=== PATIENT | female | born 1990 | race Caucasian/White ===

== ENCOUNTER → 2018-11-01 14:07 | Outpatient (CLI) | payer BC, OTHER, SELFPAY ==
--- NOTE | 2018-11-01 14:17 | US_ITS ---
US breast RT complete US breast LT complete, Ordering Physician: Ann Perales APRN Patient Age: 28 years: Female HISTORY: ITS.REASON: BILAT BREAST MASS Technologist MW states the patient has scattered palpable areas of density bilaterally. No single dominant palpable area clinically TECHNIQUE: COMPARISON :No prior studies PROCEDURE/ ultrasound survey of the entire right and left breast performed; axillary survey included: ULTRASOUND LEFT BREAST Including Axillary Survey: Dense fibrous background initial patient with and fibrocystic pattern overall bilaterally.. 10:00: At more central portion breast posterior to the nipple is a 6.7 mm debris-filled cyst benign appearance. Thin wall. 11:00.: .-At central breast posterior to the nipple there is a 12 mm length x 6 mm AP benign appearing cyst withmoderate wall thickness. In this may benefit from 6 month follow up given the moderate wall thickness;. But appears to be a benign cyst There is a smaller cyst or septated portion of this cyst seen anteriorly at the second cystic area measuring 5 mm maximally Axillary survey images 2 benign-appearing axillary lymph nodes the largest 1.9 cm in length. The these are not of concern ULTRASOUND RIGHT BREAST Including Axillary Survey: 1:00 central breast posterior the nipple is a benign appearing cyst measuring up to 9.8 mm length x 4.5 mm AP. 2:00: Bilobed benign-appearing cyst measuring just over 1 cm length x 6 mm.. 10:00: there is a 8.6 mm x 5.3 mm benign-appearing cyst central breast 11:00: debris-filled cyst measuring 6.4 mm central breast deep to the nipple region. Again otherwise note a background of moderately dense fibrous breast reflecting the underlying fibrocystic breast appearance overall bilaterally. Axilla survey demonstrates 3 Benign axillary lymph nodes. Not of concern. Largest 1.7 cm length with thinned cortex. ...... IMPRESSION: .... 1. Dense Fibrocystic breast bilaterally. No suspicious solid nodules or areas with ultrasound . Scattered cysts throughout both breasts, slightly more numerous at right breast; with background of dense fibrous appearing tissue. (Because dense ultrasound pattern & numerous cysts we did not pursue mammography 28-year-old patient.. It was felt that ultrasound would suffice at this initial visit particularly since no unique discrete single palpable dominant mass encountered clinically) RIGHT BREAST.: Several small cyst & debris-filled cysts at the right breast. None of significant concern. Largest measuring nearly 1 cm size at 1:00. These benign-appearing cysts can be followed LEFT BREAST:.two benign-appearing cyst. The largest measuring up to 1.2 cm at 11 o'clock position, with moderate wall thickness which could reflect some minor inflammation if tender here.. Suggest a follow-up Bilateral Breast Ultrasound in 6-9 months to confirm stable baseline character. (. If a persistent a dominant or persistent palpable area of encounter or persistent mammography could be included at that visit) BI-RADS Category: 3 Probably Benign Finding Short Term Follow-up to confirm stability RECOMMENDED FOLLOW-UP: 6M - -9 MONTH FOLLOW-UP (A letter has been sent to the patient regarding results of the study.)
== END ==
PROVIDERS: PCP Nurse Practitioner Family; Visit Provider Nurse Practitioner Family
DX: Q83.9 Congenital malformation of breast, unspecified (principal)
CPT/HCPCS: 76641

== ENCOUNTER → 2020-02-02 16:20 | Outpatient (CLI) | payer BC, SELFPAY | PROVIDERS: PCP Family Medicine; Visit Provider Nurse Practitioner Family | DX: Z02.1 Encounter for pre-employment examination (principal); Z11.1 Encounter for screening for respiratory tuberculosis ==

== ENCOUNTER 2020-03-29 13:36 | Emergency (ER) | payer BC, SELFPAY ==
[2020-03-29 13:44] VITALS: BP 124/76; PULSE 100; RESP 18; TEMP 36.7; O2SAT 99; BMI 30.2
--- NOTE | 2020-03-29 14:00 | HMH.EDUTC ---
[facility] [place] Disposition Clinical Impression: Sinusitis Qualifiers: Sinusitis location: unspecified location Chronicity: acute Recurrence: non-recurrent Qualified Code(s): J01.90 - Acute sinusitis, unspecified Disposition: Home, Self-Care Condition on Discharge: Good Instructions: Sinusitis, DI for Sinusitis Additional Instructions: Drink plenty of fluids. Take tylenol or ibuprofen for pain or fever. Take the medications as directed. Follow up with your regular doctor. GO TO THE ER FOR ANY WORSENING SYMPTOMS FOLLOW THE DIRECTIONS ON THE COVID-19 HAND OUT THAT WE GAVE YOU REGARDING SELF-ISOLATION UNTIL YOU KNOW YOUR COVID-19 RESULTS Prescriptions: Brompheniramine/Pseudoephed/Dm [Bromfed Dm Cough Syrup] 5 ml PO Q6HP PRN #240 syrup PRN Reason: Cough [facility] Status[id number] Azithromycin [Z-Mohan 250mg Tab*] 250 mg PO UD DOSE PK #6 tab Transmission Status: Received by [facility] Referrals: Ian Linder MD [Primary Care Provider] - Forms: Work/School Release Time of Disposition: 14:06 Medical Decision Making - Medical Records Medical records reviewed: No: I reviewed the patient's medical records. - Nathan Inquiry Pt receiving controlled substance: No Vital Signs: 03/29/20 13:44 03/29/20 14:15 Temperature 98.1 F 98.1 F Temperature Source Oral Oral Pulse Rate 100 H Pulse Rate [Radial] 100 H Respiratory Rate 18 18 Blood Pressure 124/76 Blood Pressure [Right Arm] 124/76 Blood Pressure Mean [Right Arm] 92 Blood Pressure Source Automatic Cuff Blood Pressure Source [Right Arm] Automatic Cuff Blood Pressure Position Sitting Blood Pressure Position [Right Arm] Sitting 02 Sat by Pulse Oximetry 99 Oxygen Delivery Method Room Air Room Air Orders (Tests/Meds): ORDERS Category Date Time Status Covid-19 Nasal PCR Sendout [place] Routine Lab 03/29/20 13:43 Received [facility] [place] HPI - General Stated complaint: drainage, upset stomach Time Seen by Provider: 03/29/20 14:00 Mode of Arrival: Ambulatory Source of Information: Patient Limitations: No Limitations Description of Symptoms (Recalled from Triage Doc. by RN): feeling bad for about weeks, sneezing, drainage and no taste HEENT Symptoms (Recalled from RN notes): Yes Resp Symptoms (Recalled from RN notes): No Skin Symptoms (Recalled from RN notes): No MS Symptoms (Recalled from RN notes): No Functional Status (Recalled from RN notes): wnl - History of Present Illness Provider Complaint: She states that she has been feeling bad and feeling run down for around 2 weeks, but today she has started feeling much worse. She denies any known exposure to covid. She works at a [employer] class at [employer]. - Related Data Previous Rx's Medication Instructions Recorded Azithromycin [Z-Mohan 250mg Tab*] 250 mg PO UD DOSE PK #6 tab 05/19/19 Benzonatate [Tessalon Perle 100mg 100 mg PO TIDP PRN #30 cap 05/19/19 Cap] Brompheniramine/Pseudoephed/Dm 5 ml PO Q6HP PRN #240 syrup 05/19/19 [Bromfed Dm Cough Syrup] predniSONE [Deltasone 10mg tablet] 10 mg PO BID 3 Days #6 tab 05/19/19 Azithromycin [Z-Mohan 250mg Tab*] 250 mg PO UD DOSE PK #6 tab 03/29/20 Brompheniramine/Pseudoephed/Dm 5 ml PO Q6HP PRN #240 syrup 03/29/20 [Bromfed Dm Cough Syrup] Allergies Allergy/AdvReac Type Severity Reaction Status Date / Time No Known Allergies Allergy Verified 05/19/18 14:04 - Worker's Comp Is this a Worker's Comp case?: No [facility] History - Hepatitis A Screen Drug use history?: No High risk sexual behaviors?: No History of sexually transmitted infection?: No Currently employed?: No Childcare worker?: No Do you have indoor plumbing?: Yes Do you have electricity?: Yes Attestation statement:: This patient has been screened for Hepatitis A risk factors. I have reviewed the patient's past medical history: Yes Medical History: Denies:: Diabetes Mellitus Type 1, Diabetes Mellitus Type 2, Hypertension Other Surg
[2020-03-29 14:15] VITALS: BP 124/76; PULSE 100; RESP 18; TEMP 36.7; O2SAT 99
[2020-03-30 13:57] LABS: Covid-19 Nasal PCR Sendout Lex Not Detected
== END 2020-03-29 14:16 | disposition home or self-care (01) ==
PROVIDERS: Emergency Provider Nurse Practitioner Family; PCP Family Medicine
DX: Z20.828 Contact with and (suspected) exposure to other viral communicable diseases (principal); J01.90 Acute sinusitis, unspecified
CPT/HCPCS: 99201; U0004

== ENCOUNTER 2020-07-13 15:00 | Emergency (ER) | payer BC, SELFPAY ==
[2020-07-13 15:00] VITALS: BP 118/71; PULSE 74; RESP 20; TEMP 36.5; O2SAT 98; BMI 30.2
--- NOTE | 2020-07-13 15:19 | HMH.EDUTC ---
[facility] [place] Clinical Impression: Sinusitis Qualifiers: Sinusitis location: unspecified location Chronicity: unspecified Qualified Code(s): J32.9 - Chronic sinusitis, unspecified Disposition: Home, Self-Care Condition on Discharge: Good Instructions: Sinusitis, Sinus Headache, DI for Sinusitis, DI for COVID-19 (Suspected or Confirmed ), Coronavirus Disease 2019, Sore Throat Additional Instructions: *Monitor Temp, Over the counter Motrin or Tylenol as directed/as needed Tylenol every 4 hours and Motrin every 6 hours (as long as your family doctor has told you that you can take it) for fever or pain. and straight to ER if unable to lower temp less than 101.0 after medication given *Warm salt water gargles may help to soothe the throat *Throat Lozenges *Warm fluids like tea with honey may help to soothe the throat *Sleep elevated *Humidifier/Vaporizer Your throat swab was sent for culture. Those results are typically sent to your primary care. Be sure to follow up in 2-3 days with your family doctor/primary care physician if no improvement so they can review those result and treat if necessary. If you don?t have a primary care doctor, I recommend you get one but in the mean time, you will have to return to a walk in clinic Follow up IMMEDIATELY for new or worsening symptoms or no Noticeable improvement over the next 48-72 hours. 911 for difficulty breathing or swallowing You were tested for today for COVID19 your test result should be back in the next 24-48 hours, you may call to the [facility] to see if your test results are back in the next 48 hours [phone] [facility] hours are 9am-9pm You was given a handout with instructions for Self Quarantine and Self isolation for while you wait on test results and what to do if they are positive If you are positive the Health Dept will be contacting you also Prescriptions: methylPREDNISolone [Medrol 4mg tab] 4 mg PO DIRECTED #21 tab Transmission Status: Pending to [facility] Azithromycin [Z-Mohan 250mg Tab] 250 mg PO DIRECTED #6 tab Transmission Status: Pending to [facility] Referrals: Ian Linder MD [Primary Care Provider] - As needed Forms: Work/School Release Time of Disposition: 15:23 Medical Decision Making - Nathan Inquiry Pt receiving controlled substance: No Nathan was queried for this patient: No Vital Signs: 07/13/20 15:00 Temperature 97.7 F Temperature Source Oral Pulse Rate [Right Brachial] 74 Respiratory Rate 20 Blood Pressure [Right Arm] 118/71 Blood Pressure Mean [Right Arm] 86 Blood Pressure Source [Right Arm] Automatic Cuff Blood Pressure Position [Right Arm] Sitting 02 Sat by Pulse Oximetry 98 Oxygen Delivery Method Room Air - Lab Data Lab results reviewed: Yes: I reviewed the patient's lab results. Orders (Tests/Meds): ORDERS Category Date Time Status Covid-19 Nasal PCR ([facility]) Routine Lab 07/13/20 15:03 Ordered [facility] [place]PI - General Stated complaint: covid test Time Seen by Provider: 07/13/20 15:19 Mode of Arrival: Ambulatory Source of Information: Patient Limitations: No Limitations Description of Symptoms (Recalled from Triage Doc. by RN): COVID TEST D/T EXPOSURE. PATIENT C/O LOSS OF TASTE, SINUS PRESSURE, SORE THROAT, AND RASH TO ARM HEENT Symptoms (Recalled from RN notes): Yes Resp Symptoms (Recalled from RN notes): No Skin Symptoms (Recalled from RN notes): Yes MS Symptoms (Recalled from RN notes): No Functional Status (Recalled from RN notes): WNL - History of Present Illness Provider Complaint: Patient states that she was around her sister in law last week and she tested positive for COVID yesterday States that she has been having sinus pain and pressure along with sore throat and yesterday had a rash on her arm that has since went away States that today she noticed she was unable to taste anything so she came in wanting to get tested - Related Data Previous Rx's Medication Instructions
[2020-07-13 15:20] LABS: UTC Strep Screen (Rapid) Negative (Negative)
[2020-07-13 15:25] VITALS: BP 118/71; PULSE 74; RESP 20; TEMP 36.5; O2SAT 98
--- NOTE | 2020-07-14 10:46 | PC.NURSE ---
spoke with patient to rely positive covid results.
== END 2020-07-13 15:30 | disposition home or self-care (01) ==
PROVIDERS: Emergency Provider Nurse Practitioner; PCP Family Medicine
DX: U07.1 COVID-19 (principal); J32.9 Chronic sinusitis, unspecified; R43.9 Unspecified disturbances of smell and taste; J02.9 Acute pharyngitis, unspecified; R21 Rash and other nonspecific skin eruption; Z20.822 Contact with and (suspected) exposure to COVID-19; Z82.3 Family history of stroke; Z80.9 Family history of malignant neoplasm, unspecified
CPT/HCPCS: 87880; 99202; G0463; U0003

== ENCOUNTER → 2020-08-31 14:48 | Outpatient (POV) | payer BC, SELFPAY | PROVIDERS: Visit Provider Dermatology | DX: Z00.00 Encounter for general adult medical examination without abnormal findings (principal) ==

== ENCOUNTER 2020-10-14 16:26 | Emergency (ER) | payer BC, SELFPAY ==
[2020-10-14 16:36] VITALS: BP 136/75; PULSE 65; RESP 16; TEMP 36.9; O2SAT 99; BMI 29.2
--- NOTE | 2020-10-14 16:52 | HMH.EDUTC ---
[facility] [place] Disposition Clinical Impression: Vomiting and diarrhea Disposition: Home, Self-Care Condition on Discharge: Good Instructions: Diarrhea, Nausea and Vomiting-Adult, Ondansetron, Dicyclomine Additional Instructions: Drink extra fluids with and between meals. If you have difficulty drinking, try very small amounts of water or suck on ice chips. ? Avoid fruit juices, as these do not replace minerals and can actually increase diarrhea. ? Children and adults can use sports drinks to replenish electrolytes. Younger children and infants should use products formulated for children, like oral rehydration solutions. ? Eat food in small amounts and let your stomach recover. ? Get lots of rest. You may feel tired or weak. ? No greasy or fried foods for the next 24-48 hours BRAT diet Bananas Rice Apples and [place] ? Make sure to drink plenty of liquids ? Return if needed ? Straight to ER if any life threatening symptoms ? Zofran as prescribed ? You was given an outpatient order for diarrhea panel, please collect specimen and bring back to outpatient lab then call back to the [facility] or follow up with family doctor for results ? Follow up with family doctor in the next 48-72 hours if no improvement or any worsening of symptoms Prescriptions: Dicyclomine HCl [Bentyl 10mg capsule] 10 mg PO TID PRN #15 cap PRN Reason: Cramping Transmission Status: Received by [facility] Ondansetron [Zofran 4mg ODT] 4 mg PO TIDP PRN #10 tab PRN Reason: Nausea [facility] Referrals: Ian Linder MD [Primary Care Provider] - As needed Forms: Work/School Release Time of Disposition: 17:02 Medical Decision Making - Nathan Inquiry Pt receiving controlled substance: No Nathan was queried for this patient: No Vital Signs: 10/14/20 16:36 Temperature 98.4 F Temperature Source Oral Pulse Rate [Right] 65 Respiratory Rate 16 Blood Pressure [Right Arm] 136/75 Blood Pressure Mean [Right Arm] 95 Blood Pressure Source [Right Arm] Automatic Cuff Blood Pressure Position [Right Arm] Sitting 02 Sat by Pulse Oximetry 99 - Lab Data Lab results reviewed: Yes: I reviewed the patient's lab results. Lab Results 10/14/20 16:36: Strep Scn Rapid Clinic Negative Orders (Tests/Meds): ED MEDICATIONS Discontinued Medications Generic Name Dose Route Start Last Admin Trade Name Luis PRN Reason Stop Dose Admin Dicyclomine HCl 10 mg 10/14/20 16:54 10/14/20 17:00 Dicyclomine 10mg Capsule PO 10/14/20 16:55 10 mg ONCE ONE Administration Ondansetron HCl 4 mg 10/14/20 16:54 10/14/20 17:01 Ondansetron 4mg Odt SL 10/14/20 16:55 4 mg ONCE ONE Administration ORDERS Category Date Time Status Strep Screen Confirmation Stat Micro 10/14/20 16:36 Received Medical Decision Narrative: Patient state that she feels better after medication [facility] [place] HPI - General Stated complaint: nauseous,diarrhea Time Seen by Provider: 10/14/20 16:53 Mode of Arrival: Ambulatory Source of Information: Patient Limitations: No Limitations Description of Symptoms (Recalled from Triage Doc. by RN): pt c/o N/V/D for the past few days. she thinks she has a stomach bug. she has also been around a child who is positive for strep. 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
[2020-10-14 16:54] LABS: UTC Strep Screen (Rapid) Negative (Negative)
[2020-10-14 17:14] VITALS: BP 127/75; PULSE 69; RESP 18; TEMP 36.6
== END 2020-10-14 17:22 | disposition home or self-care (01) ==
PROVIDERS: Emergency Provider Nurse Practitioner; PCP Family Medicine
DX: J02.9 Acute pharyngitis, unspecified (principal); R11.2 Nausea with vomiting, unspecified
CPT/HCPCS: 87880; 99202; G0463

== ENCOUNTER → 2021-02-04 13:24 | Outpatient (CLI) | payer BC, SELFPAY ==
--- NOTE | 2021-02-04 13:29 | US_ITS ---
PROCEDURE: US BREAST RT COMPLETE US BREASTLT US breast LT complete CLINICAL INDICATION: Abnormal US COMPARISON: US BREASTRT US breast RT complete from 11/01/2018 US BREASTLT US breast LT complete from 11/01/2018 US US BREAST LT COMPLETE from 02/04/2021 FINDINGS: Right breast: Numerous left breast cysts are present in a background echo dense fibroglandular tissue. These include a 4 mm cyst at 12 o'clock, 9 mm cyst at 1 o'clock, 10 mm cyst at 8 o'clock, 7 mm cyst 10 o'clock, 6 mm septated cyst at 10 o'clock outer, 7 mm cyst 8 o'clock mid and 7 mm cyst at 8 o'clock mid adjacent to the other cyst at 8 o'clock. No suspicious solid lesions evident Left breast: Multiple benign-appearing cyst in a background of heterogeneous echo density fibroglandular tissue. Complicated cyst is present at 11 o'clock at 17 x 6 mm which has developed since the previous exam. An 8 mm cyst is present at 4 o'clock. 5 mm cyst at 1 o'clock. No suspicious solid lesions evident IMPRESSION: Multiple bilateral breast cysts in a background of heterogeneous echogenic fibroglandular tissue. BI-RADS 2, benign findings Recommend annual ultrasound follow-up. Dictated by: Bk Griffiths MD 02/18/2021 15:09 Bk Griffiths MD in OV 02/18/2021 15:09
== END ==
LOC: RAD 13:25
PROVIDERS: PCP Family Medicine; Visit Provider Obstetrics & Gynecology
DX: R92.8 Other abnormal and inconclusive findings on diagnostic imaging of breast (principal)
CPT/HCPCS: 76641

== ENCOUNTER → 2021-04-15 17:46 | Outpatient (CLI) | payer BC, SELFPAY ==
[2021-04-15 18:16] LABS: Alanine Aminotransferase 19 U/L (12-78); Albumin Level 4.6 g/dl (3.5-5.0); Albumin/Globulin Ratio 1.5 (1.1-1.8); Alkaline Phosphatase 68 U/L (38-126); Anion Gap 13.1 mEq/L (5-15); Aspartate Amino Transferase 33 U/L (14-36); Bilirubin,Total 0.3 mg/dl (0.2-1.3); Blood Urea Nitrogen 9 mg/dl (7-17); Calcium 9.5 mg/dl (8.4-10.2); Carbon Dioxide 26 mmol/L (22.0-30.0); Chloride 106 mmol/L (98-107); Chol/HDL Ratio 2.9 (1-3.5); Cholesterol 192 mg/dl (140-200); Estimated Glomerular Filt Rate 117 ml/min (>60); GFR (African American) 141 ML/MIN (>60); Glucose 91 mg/dl (74-100); HDL Cholesterol 67 mg/dl (40-60); Potassium 4.1 mmoL/L (3.5-5.1); Sodium 141 mmol/L (136-145); Total Protein,Serum 7.6 g/dl (6.3-8.2); Triglycerides 84 mg/dl (30-150); VLDL Cholesterol 17 mg/dL (0-40)
[2021-04-15 18:28] LABS: Direct LDL Cholesterol 103.85 mg/dL (100-129)
[2021-04-15 18:30] LABS: Basophils # 0.1 K/mm3 (0-0.2); Basophils % 1.1 % (0.1-2.0); Eosinophils # 0.2 K/mm3 (0.0-0.4); Eosinophils % 3.2 % (0.1-12.0); Hematocrit 39.9 % (37.0-47.0); Hemoglobin 13.1 g/dL (12.2-16.2); Lymphocytes # 2.3 K/mm3 (0.7-4.5); Lymphocytes % 36.1 % (10-50); Mean Corpuscular HGB Conc 32.8 g/dL (31.8-35.4); Mean Corpuscular Volume 94.6 fl (81-99); Mean Platelet Volume 9.8 fl (7.4-10.4); Monocytes # 0.4 K/mm3 (0.1-1.0); Monocytes % 6.3 % (1.7-9.3); Neutrophils # 3.5 K/mm3 (1.8-7.8); Neutrophils % 53.5 % (37.0-80.0); Platelet Count 381 K/mm3 (142-424); Red Blood Count 4.22 M/mm3 (4.20-5.40); Red Cell Distribution Width 12.9 % (11.5-17.5); White Blood Count 6.5 K/mm3 (4.8-10.8)
[2021-04-15 18:33] LABS: 25-OH Vitamin D, Total 41.8 ng/mL (30-100)
[2021-04-15 18:34] LABS: T4 (Thyroxine) 8.8 ug/dl (5.53-11.0)
[2021-04-15 18:47] LABS: Thyroid Stimulating Hormone 1.53 uIU/mL (0.465-4.68)
[2021-04-15 19:21] LABS: Hemoglobin A1C 4.9 % (4.0-6.0)
== END ==
PROVIDERS: Visit Provider Nurse Practitioner Family
DX: R42 Dizziness and giddiness (principal); E66.9 Obesity, unspecified; Z68.30 Body mass index [BMI] 30.0-30.9, adult
CPT/HCPCS: 80053; 80061; 82306; 83036; 84436; 84443; 85025

== ENCOUNTER → 2021-06-13 13:26 | Outpatient (CLI) | payer BC, SELFPAY | PROVIDERS: Visit Provider Nurse Practitioner | DX: Z20.822 Contact with and (suspected) exposure to COVID-19 (principal) | CPT/HCPCS: C9803; U0003; U0005 ==

== ENCOUNTER → 2021-11-18 09:38 | Outpatient (CLI) | payer BC, SELFPAY ==
[2021-11-19 08:12] LABS: FSH 3.6 mIU/mL (.); LH 7.3 mIU/mL (.); Progesterone 10.4 ng/mL (.)
[2021-11-26 17:09] LABS: Testosterone, Total, LC/MS 24.9 ng/dL (10.0-55.0); Testosterone,Free 1.2 pg/mL (0.0-4.2)
== END ==
PROVIDERS: PCP Family Medicine; Visit Provider Obstetrics & Gynecology
DX: R63.5 Abnormal weight gain (principal); Z68.35 Body mass index [BMI] 35.0-35.9, adult
CPT/HCPCS: 36415; 82670; 83001; 83002; 84144; 84402; 84403

== ENCOUNTER → 2022-01-25 15:33 | Outpatient (CLI) | payer SELFPAY | PROVIDERS: Visit Provider Nurse Practitioner Family | DX: Z02.1 Encounter for pre-employment examination (principal); Z11.1 Encounter for screening for respiratory tuberculosis ==

== ENCOUNTER → 2022-10-20 23:39 | Outpatient (CLI) | payer BC, SELFPAY ==
[2022-10-20 17:39] LABS: Basophils % 0.7 % (0.1-2.0); Eosinophils # 0.1 K/mm3 (0.0-0.4); Eosinophils % 1.8 % (0.1-12.0); Hematocrit 39.1 % (37.0-47.0); Lymphocytes # 1.6 K/mm3 (0.7-4.5); Lymphocytes % 30.3 % (10-50); Mean Corpuscular HGB Conc 33.3 g/dL (31.8-35.4); Mean Corpuscular Hemoglobin 30.4 pg (27.0-31.2); Mean Corpuscular Volume 91.3 fl (81-99); Mean Platelet Volume 8.5 fl (7.4-10.4); Monocytes # 0.5 K/mm3 (0.1-1.0); Monocytes % 10.2 % (1.7-9.3); Platelet Count 371 K/mm3 (142-424); Red Blood Count 4.29 M/mm3 (4.20-5.40); Red Cell Distribution Width 12.9 % (11.5-17.5); White Blood Count 5.3 K/mm3 (4.8-10.8)
[2022-10-20 18:04] LABS: Alanine Aminotransferase 24 U/L (12-78); Albumin Level 4.6 g/dl (3.5-5.0); Albumin/Globulin Ratio 1.5 (1.1-1.8); Alkaline Phosphatase 74 U/L (38-126); Anion Gap 20.5 mEq/L (5-15); Aspartate Amino Transferase 28 U/L (14-36); Bilirubin,Total 0.4 mg/dl (0.2-1.3); Blood Urea Nitrogen 13 mg/dl (7-17); Calcium 9.3 mg/dl (8.4-10.2); Carbon Dioxide 24 mmol/L (22.0-30.0); Chloride 98 mmol/L (98-107); Chol/HDL Ratio 2.6 (1-3.5); Cholesterol 173 mg/dl (140-200); Estimated Glomerular Filt Rate 96 ml/min (>60); GFR (African American) 117 ML/MIN (>60); Glucose 74 mg/dl (74-100); HDL Cholesterol 67 mg/dl (40-60); Potassium 4.5 mmoL/L (3.5-5.1); Sodium 138 mmol/L (136-145); Total Protein,Serum 7.6 g/dl (6.3-8.2); Triglycerides 45 mg/dl (30-150); VLDL Cholesterol 9 mg/dL (0-40)
[2022-10-20 18:15] LABS: Direct LDL Cholesterol 101.06 mg/dL (100-129)
[2022-10-20 18:36] LABS: Thyroid Stimulating Hormone 0.71 uIU/mL (0.465-4.68)
== END ==
PROVIDERS: PCP Student in an Organized Health Care Education/Training Program; Visit Provider Student in an Organized Health Care Education/Training Program
DX: N39.0 Urinary tract infection, site not specified (principal); Z13.29 Encounter for screening for other suspected endocrine disorder; Z13.220 Encounter for screening for lipoid disorders; R42 Dizziness and giddiness; R10.30 Lower abdominal pain, unspecified; E66.9 Obesity, unspecified; Z68.30 Body mass index [BMI] 30.0-30.9, adult; Z79.899 Other long term (current) drug therapy; B96.29 Other Escherichia coli [E. coli] as the cause of diseases classified elsewhere
CPT/HCPCS: 80053; 80061; 84443; 85025; 87086; 87088; 87186

== ENCOUNTER 2023-02-26 10:03 | Emergency (ER) | payer BC, SELFPAY ==
[2023-02-26 10:10] VITALS: BP 141/81; PULSE 61; RESP 17; TEMP 36.8; O2SAT 97; BMI 29.2
[2023-02-26 10:24] LABS: UTC Strep Screen (Rapid) Negative (Negative)
--- NOTE | 2023-02-26 10:46 | EXP.UTC ---
Discharge Plan Disposition Patient Disposition: Home, Self-Care Condition: Good Prescriptions Prescriptions: New prednisone 10 mg tablet 10 mg PO BID 3 Days Qty: 6 0RF azithromycin [Zithromax] 250 mg tablet 250 mg PO UD DOSE PK Qty: 6 0RF Rx Instructions: Take two (2) tablets today, then one (1) tablet days #2 thru #5 ondansetron 4 mg Tablet,Disintegrating 4 mg PO Q8H PRN (Reason: Nausea) Qty: 12 0RF Referrals Follow up/Referrals: Ian Linder MD [Primary Care Provider] - See instructions Activity Restrictions/Add. Instructions Additional Instructions/Restrictions: Drink plenty of fluids. Take tylenol or ibuprofen for pain or fever. Take the medications as directed. Follow up with your regular doctor. GO TO THE ER FOR ANY WORSENING SYMPTOMS Clinical Impressions Clinical Impression: Viral illness, Pharyngitis Stand Alone Forms Stand Alone Forms: Work/School Release Instructions Patient Instructions: DI for Viral Syndrome, Ondansetron Discharge ED Provider: Rocky Mayer [facility] General Stated complaint: sore throat, vomiting Mode of Arrival: Ambulatory Source of Information: Patient Limitations: No Limitations Time Seen by Provider: 02/26/23 10:58 Description of Symptoms (Recalled from Triage Doc. by RN): sore throat, and vomiting HEENT Symptoms (Recalled from RN notes): Yes Resp Symptoms (Recalled from RN notes): No Skin Symptoms (Recalled from RN notes): No MS Symptoms (Recalled from RN notes): No Functional Status (Recalled from RN notes): n/a History of Present Illness Provider Complaint: She states that for the past 2 days she has had sore throat, chills, fever and malaise. Related Data Previous Rx's Medication Instructions Recorded azithromycin 250 mg tablet 250 mg PO UD DOSE PK #6 tabs 02/26/23 (Zithromax) ondansetron 4 mg disintegrating 4 mg PO Q8H PRN Nausea #12 tabs 02/26/23 tablet prednisone 10 mg tablet 10 mg PO BID 3 days #6 tabs 02/26/23 Allergies Allergy/AdvReac Type Severity Reaction Status Date / Time No Known Allergies Allergy Verified 02/26/23 10:14 Worker's Comp Is this a Worker's Comp case?: No [facility] Disclaimer: The information contained in this section may have been updated after the patient was seen, as this information can be updated by other users. Medical History Fibrocystic breast Surgical History History of hysterectomy Family History Other Cancer Diabetes Stroke Social History Smoking Status: Never smoker alcohol intake: never substance use type: denies use current occupational status: other Travel in the last 8 weeks: None household members: family housing: house ROS Obtained: Yes All systems reviewed & no additional complaints except as documented Constitutional Constitutional: Reports chills and Reports fever(s) Eyes Eyes: Denies eye discharge ENT Ears, Nose, Mouth, and Throat: Reports as per HPI Cardiovascular Cardiovascular: Denies chest pain Respiratory Respiratory: Denies chest congestion and Reports cough Gastrointestinal Gastrointestingal: Reports nausea; Denies abdominal pain, constipation, cramping, diarrhea or vomiting Musculoskeletal Musculoskeletal: Denies arthralgias Integumentary/Breasts Skin/Breast: Denies rash Neurologic Neurologic: Denies paresthesias Physical Exam General General appearance: alert and in no apparent distress Head Head exam: atraumatic, normocephalic and normal inspection Eye Eye exam: Present normal appearance, PERRL and EOMI ENT ENT exam: Present normal exam, normal oropharynx, mucous membranes moist, TM's normal bilaterally and normal external ear exam Neck Neck exam: Present normal inspection, full ROM and trachea midline; Absent meningism
[2023-02-26 11:26] VITALS: BP 141/81; PULSE 61; RESP 18; TEMP 36.8; O2SAT 97
== END 2023-02-26 11:26 | disposition home or self-care (01) ==
PROVIDERS: Emergency Provider Nurse Practitioner Family; PCP Family Medicine
DX: J02.9 Acute pharyngitis, unspecified (principal); R11.2 Nausea with vomiting, unspecified; B34.9 Viral infection, unspecified
CPT/HCPCS: 87880; 99212; 99214; G0463

== ENCOUNTER 2023-06-22 08:55 | Emergency (ER) | payer SELFPAY ==
[2023-06-22 09:15] VITALS: BP 123/74; PULSE 78; RESP 20; TEMP 36.9; O2SAT 98; BMI 29.2
[2023-06-22 09:27] LABS: UTC Strep Screen (Rapid) Negative (Negative)
--- NOTE | 2023-06-22 09:28 | ED_ITS ---
Discharge Plan Disposition Patient Disposition: Home, Self-Care Condition: Good Prescriptions Prescriptions: New prednisone 10 mg tablet 10 mg PO BID 5 Days Qty: 10 0RF amoxicillin [amoxicillin] 500 mg tablet 500 mg PO TID 10 Days Qty: 30 0RF [id number]-uproieddv-LZ [Bromfed DM] 2-30-10 mg/5 mL Syrup 5 ml PO Q6H PRN (Reason: Cough) Qty: 240 0RF ondansetron 4 mg Tablet,Disintegrating 4 mg PO Q8H PRN (Reason: Nausea) Qty: 12 0RF Referrals Follow up/Referrals: Ian Linder MD [Primary Care Provider] - See instructions Activity Restrictions/Add. Instructions Additional Instructions/Restrictions: Drink plenty of fluids. Take tylenol or ibuprofen for pain or fever. Take the medications as directed. Follow up with your regular doctor. GO TO THE ER FOR ANY WORSENING SYMPTOMS Clinical Impressions Clinical Impression: Pharyngitis, Acute viral syndrome Stand Alone Forms Stand Alone Forms: Work/School Release Instructions Patient Instructions: Sore Throat, DI for Pharyngitis/Tonsillopharyngitis -- Adult Discharge ED Provider: Rocky Mayer [facility] General Stated complaint: sore throat, headache, dizzy Time Seen by Provider: 06/22/23 09:27 History of Present Illness Provider Complaint: She states that for the past 4 days she has had intermittent headache, malaise, and sore throat. Related Data Previous Rx's Medication Instructions Recorded amoxicillin 500 mg tablet 500 mg PO TID 10 days #30 tabs 06/22/23 [id number]-fuqpyrmgpefuqee-DR 5 ml PO Q6H PRN Cough #240 mL 06/22/23 2 mg-30 mg-10 mg/5 mL oral syrup (Bromfed DM) ondansetron 4 mg disintegrating 4 mg PO Q8H PRN Nausea #12 tabs 06/22/23 tablet prednisone 10 mg tablet 10 mg PO BID 5 days #10 tabs 06/22/23 Allergies Allergy/AdvReac Type Severity Reaction Status Date / Time No Known Allergies Allergy Verified 02/26/23 10:14 [facility] Disclaimer: The information contained in this section may have been updated after the patient was seen, as this information can be updated by other users. Medical History Fibrocystic breast Surgical History History of hysterectomy Family History Other Cancer Diabetes Stroke Social History Smoking Status: Never smoker alcohol intake: never substance use type: denies use current occupational status: other Travel in the last 8 weeks: None household members: family housing: house ROS Obtained: Yes All systems reviewed & no additional complaints except as documented Constitutional Constitutional: Reports chills and Denies fever(s) Eyes Eyes: Denies eye discharge ENT Ears, Nose, Mouth, and Throat: Reports as per HPI Cardiovascular Cardiovascular: Denies chest pain Respiratory Respiratory: Denies chest congestion and Reports cough Gastrointestinal Gastrointestingal: Reports nausea; Denies abdominal pain, constipation, cramping, diarrhea or vomiting Musculoskeletal Musculoskeletal: Denies arthralgias Integumentary/Breasts Skin/Breast: Denies rash Neurologic Neurologic: Denies paresthesias Physical Exam General General appearance: alert and in no apparent distress Head Head exam: atraumatic, normocephalic and normal inspection Eye Eye exam: Present normal appearance, PERRL and EOMI ENT ENT exam: Present mucous membranes moist and normal external ear exam Expanded ENT Exam TM/Canal exam: Bilateral TM: erythema and bulging Nose exam: Absent sinus tenderness Mouth exam: Present normal external inspection; Absent drooling Teeth exam: Present normal inspection Throat exam: Present tonsillar erythema, tonsillomegaly and tonsillar exudate Neck Neck exam: Present normal inspection, full ROM and trachea midline; Absent tenderness, meningismus or lymphadenopathy Chest Chest inspection: Present normal inspection and symmetric chest wall rise; Absent tenderness Respiratory Respiratory exam: Present normal lung sounds bilaterally; Absent respiratory distress, wheezes or stridor Cardiovascular Cardiovascular exam: Present regular rate and normal rhythm; Absent systolic murmur or diastolic murmur Abdominal Exam Abdominal exam: Present soft and normal bowel sounds; Absent distention, tenderness, guarding, rebound or rigidity Extremities Exam Extremities exam: Present normal inspection and normal capillary refill; Absent calf tenderness Back Exam Back exam: Present normal inspection and full ROM; Absent tenderness, CVA tenderness (R) or CVA tenderness (L) Neurological Exam Neurological exam: Present alert, oriented X3 and CN II-XII intact Psychiatric Psychiatric exam: Present normal affect and normal mood Skin Skin exam: Present warm, dry, intact and normal color Medical Decision Making Medical Records Medical records reviewed: No I reviewed the patient's medical records. Nathan Inquiry Pt receiving controlled substance: No Lab Data Lab results reviewed: Yes I reviewed the patient's lab results. Lab Results 06/22/23 09:20: Strep Scn Rapid Clinic Negative Orders (Tests/Meds): ORDERS Category Date Time Status Strep Screen Confirmation Stat Micro 06/22/23 09:20 Received
[2023-06-22 09:52] VITALS: BP 123/74; PULSE 78; RESP 20; TEMP 36.9; O2SAT 98
[2023-06-22 10:11] LABS: UTC Influenza A Antigen Negative (Negative); UTC Influenza B Antigen Negative (Negative)
== END 2023-06-22 10:27 | disposition home or self-care (01) ==
PROVIDERS: Emergency Provider Nurse Practitioner Family; PCP Family Medicine
DX: J02.9 Acute pharyngitis, unspecified (principal); R51.9 Headache, unspecified; R42 Dizziness and giddiness; R53.81 Other malaise; R11.0 Nausea; B34.9 Viral infection, unspecified
CPT/HCPCS: 87804; 87880; 99212; 99214; G0463

== ENCOUNTER 2023-08-01 11:35 | Emergency (ER) | payer SELFPAY ==
[2023-08-01 12:17] VITALS: BP 131/84; PULSE 64; RESP 16; TEMP 37; O2SAT 98; BMI 31.2
--- NOTE | 2023-08-01 12:20 | ED_ITS ---
Discharge Plan Disposition Patient Disposition: Home, Self-Care Condition: Good Prescriptions Prescriptions: No Action prednisone 10 mg tablet 10 mg PO BID 5 Days Qty: 10 0RF amoxicillin [amoxicillin] 500 mg tablet 500 mg PO TID 10 Days Qty: 30 0RF gehafunwleaheky-ssuimnyhj-ML [Bromfed DM] 2-30-10 mg/5 mL Syrup 5 ml PO Q6H PRN (Reason: Cough) Qty: 240 0RF ondansetron 4 mg Tablet,Disintegrating 4 mg PO Q8H PRN (Reason: Nausea) Qty: 12 0RF amoxicillin [amoxicillin] 500 mg tablet 500 mg PO TID 10 Days Qty: 30 0RF Referrals Follow up/Referrals: Ian Linder MD [Primary Care Provider] - See instructions Activity Restrictions/Add. Instructions Additional Instructions/Restrictions: *Monitor Temp, Over the counter Motrin or Tylenol as directed/as needed Tylenol every 4 hours and Motrin every 6 hours (as long as your family doctor has told you that you can take it) for fever or pain. and straight to ER if unable to lower temp less than 101.0 after medication given *Warm salt water gargles may help to soothe the throat *Throat Lozenges? *Warm fluids like tea with honey may help to soothe the throat? *Sleep elevated *Humidifier/Vaporizer Your throat swab was sent for culture. Those results are typically sent to your primary care. Be sure to follow up in 2-3 days with your family doctor/primary care physician if no improvement so they can review those result and treat if necessary. If you don?t have a primary care doctor, I recommend you get one but in the mean time, you will have to return to a walk in clinic Follow up IMMEDIATELY for new or worsening symptoms or no Noticeable improvement over the next 48-72 hours. 911 for difficulty breathing or swallowing Clinical Impressions Clinical Impression: Viral illness Stand Alone Forms Stand Alone Forms: Work/School Release Instructions Patient Instructions: DI for Viral Syndrome, DI for Fever (Symptom) -- Adult Discharge ED Provider: Melissa Henry [facility] [place] HPI General Stated complaint: Sore throat, headache, nausea, diarrea Mode of Arrival: Ambulatory Source of Information: Patient Limitations: No Limitations Time Seen by Provider: 08/01/23 12:20 Description of Symptoms (Recalled from Triage Doc. by RN): Patient complaint of sore throat, nausea and flu like symptoms that started last night. HEENT Symptoms (Recalled from RN notes): Yes Resp Symptoms (Recalled from RN notes): No Skin Symptoms (Recalled from RN notes): No MS Symptoms (Recalled from RN notes): No Functional Status (Recalled from RN notes): wnl History of Present Illness Provider Complaint: Patient states that 2 of her children have flu and strep States yesterday she started with sore scratchy throat and having body aches, and chills that continued throughout the night and today she was still not feeling well with flu like symptoms so she came in to get checked Related Data Previous Rx's Medication Instructions Recorded amoxicillin 500 mg tablet 500 mg PO TID 10 days #30 tabs 06/22/23 ntdbypgzbatbyji-yadsptnrtftvdmb-GA 5 ml PO Q6H PRN Cough #240 mL 06/22/23 2 mg-30 mg-10 mg/5 mL oral syrup (Bromfed DM) ondansetron 4 mg disintegrating 4 mg PO Q8H PRN Nausea #12 tabs 06/22/23 tablet prednisone 10 mg tablet 10 mg PO BID 5 days #10 tabs 06/22/23 amoxicillin 500 mg tablet 500 mg PO TID 10 days #30 tabs 07/31/23 Allergies Allergy/AdvReac Type Severity Reaction Status Date / Time No Known Allergies Allergy Verified 02/26/23 10:14 Worker's Comp Is this a Worker's Comp case?: No [facility] Disclaimer: The information contained in this section may have been updated after the patient was seen, as this information can be updated by other users. Medical History Fibrocystic breast Surgical History History of hysterectomy Family History Other Cancer Diabetes Stroke Social History Smoking Status: Never smoker alcohol intake: never substance use type: denies use current occupational status: other Travel in the last 8 weeks: None household members: family housing: house ROS Obtained: Yes All systems reviewed & no additional complaints except as documented and Yes Systems reviewed as appropriate & no additional complaints except as documented Constitutional Constitutional: Reports system reviewed and no additional complaints, except as documented, Reports as per HPI, Reports body ache, Reports chills, Reports fever(s) and Reports headache(s) ENT Ears, Nose, Mouth, and Throat: Reports system reviewed and no additional complaints, except as documented, Reports as per HPI, Reports headache(s), Reports nasal congestion and Reports sore throat Cardiovascular Cardiovascular: Reports system reviewed and no additional complaints, except as documented and Reports as per HPI Respiratory Respiratory: Reports system reviewed and no additional complaints, except as documented and Reports as per HPI Gastrointestinal Gastrointestingal: Reports system reviewed and no additional complaints, except as documented and as per HPI Neurologic Neurologic: Reports headache(s) Physical Exam General General appearance: alert and in no apparent distress ENT ENT exam: Present mucous membranes moist Expanded ENT Exam Nose exam: Absent sinus tenderness Throat exam: Present tonsillar erythema Respiratory Respiratory exam: Present normal lung sounds bilaterally; Absent respiratory distress or wheezes Cardiovascular Cardiovascular exam: Present regular rate, normal rhythm and normal heart sounds Abdominal Exam Abdominal exam: Present soft and normal bowel sounds; Absent distention or tenderness Neurological Exam Neurological exam: Present alert, oriented X3 and normal gait Medical Decision Making Nathan Inquiry Pt receiving controlled substance: No Nathan was queried for this patient: No Vital Signs: 08/01/23 12:17 Temperature 98.6 F Temperature Source Oral Pulse Rate [Radial] 64 Respiratory Rate 16 Blood Pressure [Right Arm] 131/84 Blood Pressure Mean [Right Arm] 99 Blood Pressure Source [Right Arm] Automatic Cuff Blood Pressure Position [Right Arm] Sitting 02 Sat by Pulse Oximetry 98 Oxygen Delivery Method Room Air Lab Data Lab results reviewed: Yes I reviewed the patient's lab results.
[2023-08-01 12:29] LABS: UTC Strep Screen (Rapid) Negative (Negative)
[2023-08-01 12:30] LABS: UTC Influenza A Antigen Negative (Negative); UTC Influenza B Antigen Negative (Negative)
[2023-08-01 12:42] VITALS: BP 131/84; PULSE 64; RESP 16; TEMP 37; O2SAT 98
== END 2023-08-01 12:43 | disposition home or self-care (01) ==
PROVIDERS: Emergency Provider Nurse Practitioner; PCP Family Medicine
DX: R07.0 Pain in throat (principal); R50.9 Fever, unspecified; Z20.818 Contact with and (suspected) exposure to other bacterial communicable diseases; Z20.828 Contact with and (suspected) exposure to other viral communicable diseases
CPT/HCPCS: 87804; 87880; 99212; 99213; G0463

== ENCOUNTER 2023-09-06 09:15 | Emergency (ER) | payer SELFPAY ==
[2023-09-06 09:25] VITALS: BP 131/81; PULSE 71; RESP 20; TEMP 36.8; O2SAT 98; BMI 24.0
--- NOTE | 2023-09-06 09:25 | ED_ITS ---
Discharge Plan Disposition Patient Disposition: Home, Self-Care Condition: Good Prescriptions Prescriptions: New meclizine 25 mg tablet 25 mg PO TID PRN (Reason: dizziness) Qty: 30 0RF ondansetron 4 mg Tablet,Disintegrating 4 mg PO Q8H PRN (Reason: Nausea) Qty: 12 0RF Referrals Follow up/Referrals: Ian Linder MD [Primary Care Provider] - See instructions Activity Restrictions/Add. Instructions Additional Instructions/Restrictions: Drink plenty of fluids. Take tylenol or ibuprofen for pain or fever. Take the medications as directed. Follow up with your regular doctor. GO TO THE ER FOR ANY WORSENING SYMPTOMS Clinical Impressions Clinical Impression: Acute viral syndrome, Vertigo Stand Alone Forms Stand Alone Forms: Work/School Release Instructions Patient Instructions: DI for Vertigo, Meclizine Discharge ED Provider: Rocky Mayer [facility] General Stated complaint: CABRERA, vomiting Time Seen by Provider: 09/06/23 09:25 History of Present Illness Provider Complaint: She states that for the past 2 days she has had low grade fever, chills, malaise and body aches. She has also had bilateral ear pressure and intermittent dizziness. She states that she has a history of getting vertigo when she gets sinus infections and ear infections. Related Data Previous Rx's Medication Instructions Recorded meclizine 25 mg tablet 25 mg PO TID PRN dizziness #30 tabs 09/06/23 ondansetron 4 mg disintegrating 4 mg PO Q8H PRN Nausea #12 tabs 09/06/23 tablet Allergies Allergy/AdvReac Type Severity Reaction Status Date / Time No Known Allergies Allergy Verified 02/26/23 10:14 [facility] Disclaimer: The information contained in this section may have been updated after the patient was seen, as this information can be updated by other users. Medical History Fibrocystic breast Surgical History History of hysterectomy Family History Other Cancer Diabetes Stroke Social History Smoking Status: Never smoker alcohol intake: never substance use type: denies use current occupational status: other Travel in the last 8 weeks: None household members: family housing: house ROS Obtained: Yes All systems reviewed & no additional complaints except as documented Constitutional Constitutional: Denies chills, Reports fever(s) and Reports poor appetite Eyes Eyes: Denies eye discharge ENT Ears, Nose, Mouth, and Throat: Reports as per HPI, Denies ear discharge, Reports otalgia, Denies hearing loss, Denies sinus pain and Reports sore throat Cardiovascular Cardiovascular: Denies chest pain and Denies dyspnea Respiratory Respiratory: Denies chest congestion, Reports cough and Denies dyspnea Gastrointestinal Gastrointestingal: Denies abdominal pain, diarrhea, nausea or vomiting Musculoskeletal Musculoskeletal: Denies arthralgias Integumentary/Breasts Skin/Breast: Denies rash Physical Exam General General appearance: alert and in no apparent distress Head Head exam: atraumatic, normocephalic and normal inspection Eye Eye exam: Present normal appearance; Absent PERRL or EOMI ENT ENT exam: Present mucous membranes moist and normal external ear exam Expanded ENT Exam TM/Canal exam: Bilateral TM: erythema, bulging and effusion Nose exam: Absent sinus tenderness Nasal speculum exam: Bilateral: normal Mouth exam: Present normal external inspection and other; Absent drooling Teeth exam: Present normal inspection Throat exam: Present tonsillar erythema and tonsillomegaly Neck Neck exam: Present normal inspection, full ROM and trachea midline; Absent tenderness, meningismus or lymphadenopathy Chest Chest inspection: Present normal inspection and symmetric chest wall rise; Absent tenderness Respiratory Respiratory exam: Present normal lung sounds bilaterally; Absent respiratory distress, wheezes or stridor Cardiovascular Cardiovascular exam: Present regular rate, normal rhythm and normal heart sounds; Absent tachycardia or irregular rhythm Abdominal Exam Abdominal exam: Present soft and normal bowel sounds; Absent distention, tenderness, guarding, rebound or rigidity Extremities Exam Extremities exam: Present normal inspection and normal capillary refill; Absent tenderness, joint swelling or calf tenderness Back Exam Back exam: Present normal inspection and full ROM; Absent tenderness, CVA tenderness (R) or CVA tenderness (L) Neurological Exam Neurological exam: Present alert, oriented X3, CN II-XII intact, normal gait and reflexes normal; Absent motor sensory deficit Psychiatric Psychiatric exam: Present normal affect and normal mood Skin Skin exam: Present warm, dry, intact and normal color Lymphatic Lymphatic Findings: no adenopathy Medical Decision Making Medical Records Medical records reviewed: No I reviewed the patient's medical records. Nathan Inquiry Pt receiving controlled substance: No Lab Data Lab results reviewed: Yes I reviewed the patient's lab results.
[2023-09-06 09:47] LABS: UTC Influenza A Antigen Negative (Negative); UTC Influenza B Antigen Negative (Negative); UTC Strep Screen (Rapid) Negative (Negative)
[2023-09-06 10:34] VITALS: BP 131/81; PULSE 71; RESP 20; TEMP 36.8; O2SAT 98
[2023-09-06 10:45] LABS: Adenovirus,PCR Not Detected (NotDetected); Coronavirus 19, PCR Not Detected (NotDetected); Coronavirus 229E Not Detected (NotDetected); Coronavirus NL63 Not Detected (NotDetected); Coronavirus OC43 Not Detected (NotDetected); Coronovirus HKU1,PCR Not Detected (NotDetected); Human Metapneumovirus Not Detected (NotDetected); Influenza A, PCR Not Detected (NotDetected); Influenza AH1, 2009 Not Detected (NotDetected); Influenza AH1, PCR Not Detected (NotDetected); Influenza AH3,PCR Not Detected (NotDetected); Influenza B, PCR Not Detected (NotDetected); Parainfluenza 1, PCR Not Detected (NotDetected); Parainfluenza 2, PCR Not Detected (NotDetected); Parainfluenza 3, PCR Not Detected (NotDetected); Parainfluenza 4, PCR Not Detected (NotDetected); Respiratory Syncytial Virus Not Detected (NotDetected); Rhinovirus/Enterovirus Not Detected (NotDetected)
== END 2023-09-06 10:41 | disposition home or self-care (01) ==
PROVIDERS: Emergency Provider Nurse Practitioner Family; PCP Family Medicine
DX: R42 Dizziness and giddiness (principal); H92.03 Otalgia, bilateral; R50.9 Fever, unspecified; R11.0 Nausea
CPT/HCPCS: 87632; 87635; 87804; 87880; 99212; 99214; G0463

== ENCOUNTER 2023-10-12 09:20 | Emergency (ER) | payer MEDICAID, SELFPAY ==
[2023-10-12 10:05] VITALS: BP 131/84; PULSE 106; RESP 18; TEMP 36.8; O2SAT 98; BMI 32.5
--- NOTE | 2023-10-12 10:44 | ED_ITS ---
Discharge Plan Disposition Patient Disposition: Home, Self-Care Condition: Good Prescriptions Prescriptions: New cephalexin 500 mg capsule 500 mg PO QID 7 Days Qty: 28 0RF mupirocin 2 % ointment 1 applic topical TID 10 Days Qty: 22 0RF No Action meclizine 25 mg tablet 25 mg PO TID PRN (Reason: dizziness) Qty: 30 0RF ondansetron 4 mg Tablet,Disintegrating 4 mg PO Q8H PRN (Reason: Nausea) Qty: 12 0RF Referrals Follow up/Referrals: Ian Linder MD [Primary Care Provider] - See instructions Activity Restrictions/Add. Instructions Additional Instructions/Restrictions: *Start antibiotic(s) immediately and be sure to take as ordered for the FULL length of time although you may be feeling better or start to see improvement in the next 24-48 hours *Monitor closely. Outlined redness so that you can monitor easier. Follow up immediately for new or worsening symptoms including but not limited to redness, swelling, streaking from site fever or chills. *Warm compress 15 minutes 3-4 times day *Never squeeze or pop these on your own. Seek immediate medical attention next time this occurs *Monitor Temp. Tylenol every 4 hours as needed and ibuprofen every 6 hours as needed (as long as your primary care doctor has told you that it is ok to take both. For fever, aches, pain. ER if no less that 101 despite Tylenol and ibuprofen ?Follow up with your family doctor/primary care physician in the next 48-72 hours if no improvement Clinical Impressions Clinical Impression: Cellulitis Qualifiers: Site of cellulitis: unspecified site Qualified Code(s): L03.90 - Cellulitis, unspecified Instructions Patient Instructions: Cellulitis Discharge ED Provider: Melissa Henry [facility] HPI General Stated complaint: possible spider bite right arm Mode of Arrival: Ambulatory Source of Information: Patient Limitations: No Limitations Time Seen by Provider: 10/12/23 10:44 Description of Symptoms (Recalled from Triage Doc. by RN): PATIENT C/O POSSIBLE SPIDER BITE TO RIGHT UPPER ARM THAT OCCUR[place]. PATIENT STATES THERE WAS A BLISTER TO AREA AFTER THE BITE BUT HAS SINCED POPPED. REDNESS NOTED TO AREA HEENT Symptoms (Recalled from RN notes): No Resp Symptoms (Recalled from RN notes): No Skin Symptoms (Recalled from RN notes): Yes MS Symptoms (Recalled from RN notes): No Functional Status (Recalled from RN notes): WNL History of Present Illness Provider Complaint: Patient states that she thinks she was bitten by spider yesterday on her right upper arm State that initially it was just a small spot but it has continued to get larger and now looking red so she thinks it may be infected Related Data Previous Rx's Medication Instructions Recorded meclizine 25 mg tablet 25 mg PO TID PRN dizziness #30 tabs 09/06/23 ondansetron 4 mg disintegrating 4 mg PO Q8H PRN Nausea #12 tabs 09/06/23 tablet cephalexin 500 mg capsule 500 mg PO QID 7 days #28 caps 10/12/23 mupirocin 2 % topical ointment 1 applic topical TID 10 days #22 10/12/23 grams Allergies Allergy/AdvReac Type Severity Reaction Status Date / Time No Known Allergies Allergy Verified 02/26/23 10:14 Worker's Comp Is this a Worker's Comp case?: No [facility] Disclaimer: The information contained in this section may have been updated after the patient was seen, as this information can be updated by other users. Medical History (Updated 10/12/23 @ 10:50 by Melissa Henry APRN) Fibrocystic breast Surgical History (Updated 10/12/23 @ 10:19 by Beth Gould RN) H/O tubal ligation History of hysterectomy Family History Other Cancer Diabetes Stroke Social History Smoking Status: Never smoker alcohol intake: never substance use type: denies use current occupational status: other Travel in the last 8 weeks: None household members: family housing: house ROS Obtained: Yes All systems reviewed & no additional complaints except as documented and Yes Systems reviewed as appropriate & no additional complaints except as documented ENT Ears, Nose, Mouth, and Throat: Reports system reviewed and no additional complaints, except as documented and Reports as per HPI Cardiovascular Cardiovascular: Reports system reviewed and no additional complaints, except as documented and Reports as per HPI Respiratory Respiratory: Reports system reviewed and no additional complaints, except as documented and Reports as per HPI Musculoskeletal Musculoskeletal: Reports system reviewed and no additional complaints, except as documented and Reports as per HPI Integumentary/Breasts Skin/Breast: Reports system reviewed and no additional complaints, except as documented, Reports as per HPI and Reports other Comments: redness and raised area to right upper arm from spider bite Physical Exam General General appearance: alert and in no apparent distress ENT ENT exam: Present mucous membranes moist Respiratory Respiratory exam: Present normal lung sounds bilaterally and respiratory distress Cardiovascular Cardiovascular exam: Present regular rate, normal rhythm and normal heart sounds Neurological Exam Neurological exam: Present alert, oriented X3 and normal gait Skin Skin exam: Present erythema Expanded Skin Exam Body image: 2 1. red area noted with mild cellulitis noted area marked for easy monitoring Medical Decision Making Nathan Inquiry Pt receiving controlled substance: No Nathan was queried for this patient: No Vital Signs: 10/12/23 10:05 Temperature 98.2 F Temperature Source Oral Pulse Rate [Left Brachial] 106 H Respiratory Rate 18 Blood Pressure [Left Arm] 131/84 Blood Pressure Mean [Left Arm] 99 Blood Pressure Source [Left Arm] Automatic Cuff Blood Pressure Position [Left Arm] Sitting 02 Sat by Pulse Oximetry 98 Oxygen Delivery Method Room Air
[2023-10-12 10:50] VITALS: BP 131/84; PULSE 106; RESP 18; TEMP 36.8; O2SAT 98
== END 2023-10-12 10:52 | disposition home or self-care (01) ==
PROVIDERS: Emergency Provider Nurse Practitioner; PCP Family Medicine
DX: L03.113 Cellulitis of right upper limb (principal)
CPT/HCPCS: 99212; 99214; G0463

== ENCOUNTER 2024-01-25 08:53 | Outpatient (CLI) | payer SELFPAY ==
[2024-01-25 09:33] VITALS: BMI 29.2
[2024-01-25] MEDS: TUBERCULIN 5 UNITS/0.1ML 1ML VIAL ID (09:37)
== END 2024-01-25 23:59 | disposition home or self-care (01) ==
PROVIDERS: PCP Family Medicine; Visit Provider Nurse Practitioner
DX: Z11.1 Encounter for screening for respiratory tuberculosis (principal)
CPT/HCPCS: 86580

== ENCOUNTER 2024-01-29 08:26 | Emergency (ER) | payer SELFPAY ==
--- NOTE | 2024-01-29 09:07 | EXP.UTC ---
Discharge Plan Disposition Patient Disposition: Home, Self-Care Condition: Good Prescriptions Prescriptions: New prednisone 10 mg tablet 10 mg PO BID 3 Days Qty: 6 0RF azithromycin [Zithromax] 250 mg tablet 250 mg PO UD DOSE PK Qty: 6 0RF Rx Instructions: Take two (2) tablets today, then one (1) tablet days #2 thru #5 [id number] [Bromfed DM] 2-30-10 mg/5 mL Syrup 5 ml PO Q6H PRN (Reason: Cough) Qty: 240 0RF ondansetron 4 mg Tablet,Disintegrating 4 mg PO Q8H PRN (Reason: Nausea) Qty: 12 0RF No Action cephalexin 500 mg capsule 500 mg PO QID 7 Days Qty: 28 0RF mupirocin 2 % ointment 1 applic topical TID 10 Days Qty: 22 0RF meclizine 25 mg tablet 25 mg PO TID PRN (Reason: dizziness) Qty: 30 0RF ondansetron 4 mg Tablet,Disintegrating 4 mg PO Q8H PRN (Reason: Nausea) Qty: 12 0RF Referrals Follow up/Referrals: Ian Linder MD [Primary Care Provider] - See instructions Activity Restrictions/Add. Instructions Additional Instructions/Restrictions: Drink plenty of fluids. Take tylenol or ibuprofen for pain or fever. Take the medications as directed. Follow up with your regular doctor. GO TO THE ER FOR ANY WORSENING SYMPTOMS Clinical Impressions Clinical Impression: Pharyngitis, Viral illness Stand Alone Forms Stand Alone Forms: Work/School Release Instructions Patient Instructions: DI for Pharyngitis/Tonsillopharyngitis -- Adult, DI for Viral Syndrome Print Language Print Language: Ukrainian Discharge ED Provider: Rocky Mayer [facility] [place] HPI General Stated complaint: sore throat, vomiting, congestion Time Seen by Provider: 01/29/24 09:07 Related Data Previous Rx's ?Medication ?Instructions ?Recorded meclizine 25 mg tablet 25 mg PO TID PRN dizziness #30 tabs 09/06/23 ondansetron 4 mg disintegrating 4 mg PO Q8H PRN Nausea #12 tabs 09/06/23 tablet cephalexin 500 mg capsule 500 mg PO QID 7 days #28 caps 10/12/23 mupirocin 2 % topical ointment 1 applic topical TID 10 days #22 10/12/23 grams azithromycin 250 mg tablet 250 mg PO UD DOSE PK #6 tabs 01/29/24 (Zithromax) [id number] 5 ml PO Q6H PRN Cough #240 mL 01/29/24 2 mg-30 mg-10 mg/5 mL oral syrup (Bromfed DM) ondansetron 4 mg disintegrating 4 mg PO Q8H PRN Nausea #12 tabs 01/29/24 tablet prednisone 10 mg tablet 10 mg PO BID 3 days #6 tabs 01/29/24 Allergies Allergy/AdvReac Type Severity Reaction Status Date / Time No Known Allergies Allergy Verified 02/26/23 10:14 [facility] Disclaimer: The information contained in this section may have been updated after the patient was seen, as this information can be updated by other users. Medical History (Updated 01/29/24 @ 09:24 by Rocky Mayer APRN) Fibrocystic breast Surgical History (Updated 10/12/23 @ 10:19 by Beth Gould RN) H/O tubal ligation History of hysterectomy Family History Other Cancer Diabetes Stroke Social History Smoking Status: Never smoker alcohol intake: never substance use type: denies use current occupational status: other Travel in the last 8 weeks: None household members: family housing: house ROS Obtained: Yes All systems reviewed & no additional complaints except as documented Constitutional Constitutional: Reports chills and Reports fever(s) Eyes Eyes: Denies eye discharge ENT Ears, Nose, Mouth, and Throat: Reports as per HPI Cardiovascular Cardiovascular: Denies chest pain Respiratory Respiratory: Denies chest congestion and Reports cough Gastrointestinal Gastrointestingal: Reports nausea; Denies abdominal pain, constipation, cramping, diarrhea or vomiting Musculoskeletal Musculoskeletal: Denies arthralgias Integumentary/Breasts Skin/Breast: Denies rash Neurologic Neurologic: Denies paresthesias Physical Exam General General appearance: alert and in no apparent distress Head Head exam: atraumatic, normocephalic and normal inspection Eye Eye exam: Present normal appearance, PERRL and EOMI ENT ENT exam: Present mucous membranes moist and normal external ear exam Expanded ENT Exam TM/Canal exam: Bilateral TM: erythema and bulging Nose exam: Absent sinus tenderness Mouth exam: Present normal external inspection; Absent drooling Teeth exam: Present normal inspection Throat exam: Present tonsillar erythema, tonsillomegaly and tonsillar exudate Neck Neck exam: Present normal inspection, full ROM and trachea midline; Absent tenderness, meningismus or lymphadenopathy Chest Chest inspection: Present normal inspection and symmetric chest wall rise; Absent tenderness Respiratory Respiratory exam: Present normal lung sounds bilaterally; Absent respiratory distress, wheezes, stridor or accessory muscle use Cardiovascular Cardiovascular exam: Present regular rate and normal rhythm; Absent systolic murmur or diastolic murmur Abdominal Exam Abdominal exam: Present soft and normal bowel sounds; Absent distention, tenderness, guarding, rebound or rigidity Extremities Exam Extremities exam: Present normal inspection and normal capillary refill; Absent calf tenderness Back Exam Back exam: Present normal inspection and full ROM; Absent tenderness, CVA tenderness (R) or CVA tenderness (L) Neurological Exam Neurological exam: Present alert, oriented X3 and CN II-XII intact Psychiatric Psychiatric exam: Present normal affect and normal mood Skin Skin exam: Present warm, dry, intact and normal color Medical Decision Making Medical Records Medical records reviewed: No I reviewed the patient's medical records. Nathan Inquiry Pt receiving controlled substance: No Lab Data Lab results reviewed: Yes I reviewed the patient's lab results.
[2024-01-29 09:15] VITALS: BP 139/93; PULSE 87; RESP 20; TEMP 36.9; O2SAT 97; BMI 29.2
[2024-01-29 09:23] LABS: UTC Strep Screen (Rapid) Negative (Negative)
[2024-01-29 09:31] VITALS: BP 139/93; PULSE 87; RESP 20; TEMP 36.9; O2SAT 97
== END 2024-01-29 09:33 | disposition home or self-care (01) ==
PROVIDERS: Emergency Provider Nurse Practitioner Family; PCP Family Medicine
DX: J02.9 Acute pharyngitis, unspecified (principal); B34.9 Viral infection, unspecified
CPT/HCPCS: 87635; 87880; 99212; 99214; G0463